=== PATIENT | male | born 1990 | race African-American/Black ===

== ENCOUNTER 2024-06-11 20:41 | Emergency (ER) | payer BC, OTHER ==
[2024-06-11 21:01] VITALS: TEMP 97.9; BMI 36.8
[2024-06-11 22:51] VITALS: BP 128/78; PULSE 68; RESP 20
== END 2024-06-11 22:51 | disposition home or self-care (01) ==
LOC: JER 20:41
DX: K92.1 Melena (principal); K59.00 Constipation, unspecified; R10.32 Left lower quadrant pain
CPT/HCPCS: 99283-25